=== PATIENT | male | born 1935 | race African-American/Black ===

== ENCOUNTER 2018-01-16 22:21 | Emergency (ER) | payer SELFPAY ==
[~2018-01-16] VITALS: Ht 180.3 cm; Wt 68.0 kg
[2018-01-17 03:24] VITALS: BP 134/69
== END 2018-01-17 03:50 | disposition home or self-care (01) ==
LOC: ER 22:21
DX: S32.511A Fracture of superior rim of right pubis, initial encounter for closed fracture (principal); J44.9 Chronic obstructive pulmonary disease, unspecified; E11.9 Type 2 diabetes mellitus without complications; N40.0 Benign prostatic hyperplasia without lower urinary tract symptoms; R62.7 Adult failure to thrive; I10 Essential (primary) hypertension; F03.90 Unspecified dementia, unspecified severity, without behavioral disturbance, psychotic disturbance, mood disturbance, and anxiety; W01.0XXA Fall on same level from slipping, tripping and stumbling without subsequent striking against object, initial encounter; Y93.89 Activity, other specified; Y92.128 Other place in nursing home as the place of occurrence of the external cause
CPT/HCPCS: 70450; 71045; 72170; 99284